=== PATIENT | male | born 1950 | race Two or more races ===

== ENCOUNTER 2022-01-29 14:44 | Day surgery (SDC) | payer MEDICARE, OTHER ==
[2022-01-29] MEDS ORDERED: Cyclopentolate 1% Opth Drop 2 ML BOT ONE (15:26)
[2022-01-29] MEDS ORDERED: Phenylephrine 2.5% Ophth Soln 5 ML BOT ONE (15:26)
[2022-01-29] MEDS ORDERED: EPINEPHrine 0.3 MG in Ophthalmic Irrigation Solution 500 ML IRR SCH (16:30)
[2022-01-29 16:53] LABS: SARS-CoV-2 NAA Rapid Test Not Detected (NotDetected)
[2022-01-29] MEDS ORDERED: Lidocaine 1% PF 5 ML VIAL ONE ×2 (18:12)
[2022-01-29] MEDS ORDERED: PROPOFOL 200 MG/20 ML VIAL ONE (18:12)
[2022-01-29] MEDS ORDERED: Triamcinolone 40 MG/ML VIAL ONE (18:12)
[2022-01-29] MEDS ORDERED: Lidocaine 4% PF 5 ML AMP ONE (18:12)
[2022-01-29] MEDS ORDERED: CEFAZOLIN 1 GM VIAL ONE (18:12)
[2022-01-29] MEDS ORDERED: Bupivacaine 0.75% 10 ML VIAL ONE (18:12)
[2022-01-29] MEDS ORDERED: Acetaminophen 325 MG TAB ONE (19:48)
== END 2022-01-29 20:05 | disposition home or self-care (01) ==
LOC: SDC 14:44
PROVIDERS: ATTEND Ophthalmology Retina Specialist
PROC: 08T53ZZ Resection of Left Vitreous, Percutaneous Approach (ICD-10-PCS; principal; 2022-01-29)
DX: H33.022 Retinal detachment with multiple breaks, left eye (principal); I10 Essential (primary) hypertension; G47.30 Sleep apnea, unspecified; Z85.118 Personal history of other malignant neoplasm of bronchus and lung; Z88.8 Allergy status to other drugs, medicaments and biological substances; Z20.822 Contact with and (suspected) exposure to COVID-19
CPT/HCPCS: 67108; U0002; J0690; J2704; J3301; J3490